=== PATIENT | male | born 1975 | race Caucasian/White ===

== ENCOUNTER 2017-01-18 07:50 | Emergency (ER) | payer OTHER, BC ==
[2017-01-18 08:04] VITALS: BP 143/97
[2017-01-18] MEDS ORDERED: Lidocaine 1% 50 ML MDV INJECT ONE (08:15)
--- NOTE | 2017-01-18 08:39 | EDM.PDOC ---
ED HPI Skin/Rash - General Chief Complaint: Laceration Stated Complaint: LT THUMB LAC Time Seen by Provider: 01/18/17 08:06 Source: Reports: Patient History Limitations: Reports: No limitations - History of Present Illness INITIAL COMMENTS - FREE TEXT/NARRATIVE: The patient was at work trying to remove a large bolt from a conveyer and something shifted and his let thumb was crushed. He has a 2cm laceration to the volar aspect of his left thumb. He has some numbness and tingling. He can move his thumb but with some limitation due to the swelling. He is right handed and his tetanus is up to date. Timing: Reports: still present Location, Skin: Reports: upper extremity, left (thumb) Quality: Reports: Sharp Severity: moderate Place of Occurrence: work Associated Symptoms: Reports: no other symptoms - Related Data Allergies Allergy/AdvReac Type Severity Reaction Status Date / Time No Known Allergies Allergy Verified 01/18/17 08:04 Home Meds: Ambulatory Orders Medication Instructions Recorded Confirmed Esomeprazole [NexIUM] 40 mg PO ACBREAKFAST 01/18/17 01/18/17 Past Medical History Gastrointestinal History: Reports: GERD - Past Surgical History GI Surgical History: Reports: Colon Social & Family History - Tobacco Use Smoking Status *Q: Never Smoker - Caffeine Use Caffeine Use: Reports: Soda - Recreational Drug Use Recreational Drug Use: No ED ROS GENERAL - Review of Systems Review Of Systems: See Below Constitutional: Reports: no symptoms HEENT: Reports: No symptoms Respiratory: Reports: No Symptoms Cardiovascular: Reports: No symptoms Endocrine: Reports: no symptoms GI/Abdominal: Reports: No symptoms : Reports: no symptoms Musculoskeletal: Reports: other (Crush injury to the left thumb with 2cm laceration) ED EXAM, SKIN/RASH Exam: See Below Exam Limited By: No limitations General Appearance: alert, no apparent distress Ears: normal external exam Nose: normal inspection Head: atraumatic, normocephalic Neck: normal inspection Respiratory/Chest: no respiratory distress Extremities: other (Moderate edema to the left thumb with a 2cm laceration to the volar aspect of the thumb. He has good capillary refill but he has mild numbness and tingling to the thumb. He has limited range of motion due to the edema. Tendon appear to be intact.) ED SKIN PROCEDURES - Laceration/Wound Repair Left Finger Lac/wound length in cm: 2 Appearance: subcutaneous, linear Distal NVT: no tendon injury, other (He has some numbness and tingling to his thumb) Anesthetic type: local Local anesthesia - Lidocaine (Xylocaine): 1% plain Skin prep: saline Exploration/Debridement/Repair: wound explored, in a bloodless field, explored to base Closed with: sutures Suture size: 4-0 # of sutures: 4 Suture type: nylon, interrupted, simple Tetanus status addressed: Yes Complications: No Course - Vital Signs Last Recorded V/S: Last Vital Signs Temp 97.6 F 01/18/17 08:02 Pulse 67 01/18/17 08:02 Resp 16 01/18/17 08:02 BP 143/97 H 01/18/17 08:02 Pulse Ox 99 01/18/17 08:02 - Orders/Labs/Meds Orders: Active Orders 24 hr Category Date Time Status Fingers Thumb Lt FA [CR] Stat Exams 01/18/17 08:10 Taken Meds: Medications Discontinued Medications Generic Name Dose Route Start Last Admin Trade Name Nicole PRN Reason Stop Dose Admin Lidocaine HCl 50 ml 01/18/17 08:15 Xylocaine 1% INJECT 01/18/17 08:16 ONETIME ONE - Re-Assessments/Exams Free Text/Narrative Re-Assessment/Exam: 01/18/17 08:39 His x-ray shows no fracture. I sutured his thumb with 4 sutures. Departure - Departure Time of Disposition: 08:40 Disposition: Home, Self-Care 01 Condition: good Clinical Impression: Crushing injury of left thumb Qualifiers: Encounter type: initial encounter Qualified Code(s): S67.02XA - Crushing injury of left thumb, initial encounter Laceration of left thumb Qualifiers: Encounter type: initial encounter Qualified Code(s): S61.012A - Laceration without foreign body of left thumb without damage to nail, initial encounter Forms: ED Department Discharge Additional Instructions: Soak your thumb in warm soapy water 2 times per day and apply antibiotic ointment after. Have the sutures removed in 1 week. Look for any sign of infection such as redness, swelling, drainage and pain. Try to elevate your thumb above your heart as much as you can for 2 days. Ice your thumb for 15 minutes a few times per day. Please return if you are worse. You can have your sutures removed with your doctor or at our walk in clinic down the [place]. - My Orders Last 24 Hours: My Active Orders 01/18/17 08:10 Fingers Thumb Lt FA [CR] Stat - Assessment/Plan Last 24 Hours: My Active Orders 01/18/17 08:10 Fingers Thumb Lt FA [CR] Stat
--- NOTE | 2017-01-18 11:52 | CR ---
Left thumb: Three views of the left thumb were obtained. Comparison: No previous study. Soft tissue swelling is identified. Joint spaces are preserved. No acute fracture or other bony abnormality is seen. Impression: 1. Soft tissue swelling. No bony abnormality is seen on left thumb study. Diagnostic code #2
== END 2017-01-18 08:54 | disposition home or self-care (01) ==
LOC: JD.ED 07:50
DX: S61.012A Laceration without foreign body of left thumb without damage to nail, initial encounter (principal); X58.XXXA Exposure to other specified factors, initial encounter; Y92.69 Other specified industrial and construction area as the place of occurrence of the external cause; Y99.0 Civilian activity done for income or pay; K21.9 Gastro-esophageal reflux disease without esophagitis; Z98.890 Other specified postprocedural states
CPT/HCPCS: 12001; 73140-26-FA; 73140-FA; 99282; 99283-25